=== PATIENT | female | born 1940 | race Caucasian/White ===

== ENCOUNTER 2021-11-10 12:23 | Outpatient (CLI) | payer MEDICARE, SELFPAY ==
--- NOTE | ~2021-11-10 | NM_ITS ---
EXAMINATION: BERTHA solano renal scan DATE: 11/10/2021 13:53 INDICATION: Hydronephrosis. TECHNIQUE: 8.1 mCi Tc-99m MAG3 was administered IV. 40 mg furosemide was administered IV immediately afterward. The patient was scanned in the supine position. A posterior abdominal radionuclide angiog christiano was obtained. A subsequent time course of static images of the kidneys, ureters, and bladder was obtained. COMPARISON: None FINDINGS: The posterior abdominal radionuclide angiogram and sequential static images show normal siz e, position, and morphology of the kidneys. Peak renal parenchymal uptake was 4 min in right kidney a nd 4 min in left kidney (normal peak 3-5 minutes). The relative early renal uptake was 57% on the ri ght and 43% on the left (<40% is abnormal). No abnormalities of the ureters or bladder are seen. T1/2 for clearance of activity from the right kidney and proximal collecting system was 10 minutes. T1/2 for clearance of activity from the left kidney and proximal collecting system was 10 minutes. IMPRESSION: 1. Symmetric kidney function. 2. Borderline-delayed contrast clearance from the kidneys, which may be seen with low grade obstruct ion of questionable clinical significance, dehydration, or decreased renal function. Reviewed, dictated and finalized at location B. IMPRESSION: 1. Symmetric kidney function. 2. Borderline-delayed contrast clearance from the kidneys, which may be seen w ith low grade obstruction of questionable clinical significance, dehydration, o r decreased renal function.
== END 2021-11-10 12:24 | disposition home or self-care (01) ==
PROVIDERS: PCP Nurse Practitioner Adult Health; Visit Provider Nurse Practitioner Adult Health
DX: N13.30 Unspecified hydronephrosis (principal)
CPT/HCPCS: 78708; A9562